=== PATIENT | male | born 1945 | race Two or more races ===

== ENCOUNTER 2023-09-12 16:32 | Emergency (ER) | payer MEDICARE, MEDICAID ==
[~2023-09-12] VITALS: Ht 157.5 cm; Wt 95.4 kg
[2023-09-12 16:32] VITALS: BP 149/59; PULSE 68; RESP 16; TEMP 98.7; O2SAT 96
[~2023-09-12 16:32] MED LIST: ASPI-1071 PO; ATOR20TA66 PO; FLO0.4C PO; HYDR-3972 PO; LEVO500T2 PO; LISI1TAB53 PO; LISI20TA28 PO; METF-1203 PO; METF-436 PO; METR500T PO; OMEP20CA15 PO; PANT40TA54 PO
== END 2023-09-12 20:33 | disposition home or self-care (01) ==
LOC: ER 16:32
DX: I89.0 Lymphedema, not elsewhere classified (principal); M79.662 Pain in left lower leg; E11.9 Type 2 diabetes mellitus without complications; I10 Essential (primary) hypertension
CPT/HCPCS: 93971; 99284